=== PATIENT | male | born 1990 | race Caucasian/White ===

== ENCOUNTER 2016-03-29 09:52 | Emergency (ER) | payer OTHER ==
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
== END 2016-03-29 10:39 | disposition home or self-care (01) ==
LOC: ER 09:52
DX: R55 Syncope and collapse (principal); V49.9XXA Car occupant (driver) (passenger) injured in unspecified traffic accident, initial encounter
CPT/HCPCS: 99283